=== PATIENT | male | born 1945 | race Caucasian/White ===

== ENCOUNTER 2019-05-14 07:08 | Day surgery (SDC) | payer OTHER, MEDICARE ==
[2019-05-14] MEDS ORDERED: MIDAZOLAM HCL 2MG/2ML VIAL IV ONE (07:09)
[2019-05-14] MEDS ORDERED: DEXAMETHASONE 4 MG/ML 1ML VIAL IVP ONE (07:09)
[2019-05-14] MEDS ORDERED: LIDOCAINE 2% MDV (20MG/ML) 20ML VIAL IV ONE (07:09)
[2019-05-14] MEDS ORDERED: DESFLURANE 240 ML BTL INH ONE (07:09)
[2019-05-14] MEDS ORDERED: EPHEDRINE SULFATE 50 MG/ML ML IV ONE (07:09)
[2019-05-14] MEDS ORDERED: ONDANSETRON HCL IV 4 MG/2 ML VIAL IVP ONE (07:09)
[2019-05-14] MEDS ORDERED: PROPOFOL 10 MG/ML VIAL IV ONE (07:09)
[2019-05-14] MEDS ORDERED: FENTANYL PF 100MCG/2ML VIAL IV ONE (07:09)
[2019-05-14] MEDS ORDERED: RINGERS SOLUTION,LACTATED 1,000 ML IV ONE (07:30)
[2019-05-14] MEDS ORDERED: ACETAMINOPHEN 1,000 MG/100 ML BTL IVPB ONE (07:43)
[2019-05-14] MEDS ORDERED: ACETAMINOPHEN W/ CODEINE 300MG/30MG TABLET PO ONE (10:42)
--- NOTE | 2019-05-14 10:44 | Operative Note ---
DATE OF SURGERY: 05/14/2019 SURGEON: Good Montalvo D.O. REFERRING PHYSICIAN: You Reardon D.O. PREOPERATIVE DIAGNOSIS: CARPAL TUNNEL SYNDROME OF THE LEFT WRIST. POSTOPERATIVE DIAGNOSIS: CARPAL TUNNEL SYNDROME OF THE LEFT WRIST. OPERATION: DECOMPRESSION LEFT MEDIAN NERVE AT THE WRIST USING 3.5 LOOP MAGNIFICATION. DESCRIPTION: This 73-year-old male was taken to the Operating Room and placed in the supine position on the operating room table where general anesthesia was induced. The left upper extremity was elevated, it was prepped with Hibiclens and draped in the usual sterile fashion, exsanguinated, and the tourniquet was inflated to 250 mmHg. A palmar incision was utilized following the hypothenar crease and dissection was carried down through the skin and subcutaneous tissue. Hemostasis was obtained with the electrocautery. The palmar fashion was divided in line with the skin incision. The flexor retinaculum was easily identified, it was punctured and split to its proximal margin with the contents of carpal tunnel under direct vision the transverse carpal ligament was transected along its ulnar border and the radial flap was raised to expose the entire median nerve under the transverse carpal ligament. Hyperemia of the median nerve was identified. The recurrent motor branch of the median nerve was also identified and found to be normal. Once fully decompressed the wound was copiously irrigated, tourniquet released, hemostasis obtained, with the electrocautery and the wound closed with interrupted 6-0 nylon suture. Sterile dressings were applied and the patient was taken to the Recovery Room in satisfactory condition. 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 JOB NUMBER: [id number] MTDD
== END 2019-05-14 10:59 | disposition home or self-care (01) ==
LOC: SUR 07:08
PROVIDERS: ATTEND Orthopaedic Surgery
DX: G56.02 Carpal tunnel syndrome, left upper limb (principal)
CPT/HCPCS: J2405; J7120